=== PATIENT | female | born 1960 | race Caucasian/White ===

== ENCOUNTER 2016-10-27 10:42 | Emergency (ER) | payer OTHER | END 2016-10-27 12:43 | disposition left against medical advice (07) | LOC: UCEAST 10:42 | DX: L98.9 Disorder of the skin and subcutaneous tissue, unspecified (principal); Z53.21 Procedure and treatment not carried out due to patient leaving prior to being seen by health care provider ==

== ENCOUNTER 2016-10-27 13:00 | Emergency (ER) | payer OTHER ==
[2016-10-27 13:21] VITALS: BP 119/75
--- NOTE | 2016-10-27 14:43 | UC ---
Epistaxis Nasal HPI - HPI Summary HPI Summary: FOUR TO FIVE DAYS OF RIGHT NOSTRIL, TENDERNESS, REDNESS, SWELLING. NO FEVER. NO DRAINAGE, NO TRAUMA. - History of Current Complaint Chief Complaint: KALEYkin Stated Complaint: NOSE COMPLAINT Time Seen by Provider: 10/27/16 13:24 Hx Obtained From: Patient Hx Last Menstrual Period: 03/2016 Onset/Duration: Gradual Onset, Lasting Days, Still Present Timing: Days Severity Initially: Mild Severity Currently: Moderate Pain Intensity: 0 Pain Scale Used: Adult Non Verbal Aggravating Factor(s): Nothing - TOUCH Alleviating Factor(s): Nothing Associated Signs And Symptoms: Negative: Sinus Pain, Nasal Discharge - Allergies/Home Medications Allergies/Adverse Reactions: Allergies Allergy/AdvReac Type Severity Reaction Status Date / Time Penicillin G Allergy Itching Verified 09/17/16 13:34 Sulfamethoxazole Allergy Hives Verified 10/27/16 13:22 w/Trimethoprim [From Bactrim] HAYFEVER Allergy SNEEZING, Uncoded 09/17/16 13:34 CONGESTION, ITCHY WATERY EYES PMH/Surg Hx/FS Hx/Imm Hx Previously Healthy: Yes - Surgical History Surgical History: Yes Surgery Procedure, Year, and Place: 2010 LEFT INGUINAL HERNIA REPAIR, [facility]IL[facility]OM[facility] AGE 6WISDOM TEETH [id number] VARICOSE VEIN SURGERY LEFT LEG , [facility] - Family History Known Family History: Negative: Respiratory Disease - Social History Occupation: Employed Full-time Lives: With Family Alcohol Use: None Substance Use Type: None Smoking Status (MU): Never Smoked Tobacco Review of Systems Constitutional: Negative Skin: Other Eyes: Negative ENT: Other - RIGHT NOSTRIL REDNESS, SWELLING, AND PAIN Respiratory: Negative Cardiovascular: Negative Gastrointestinal: Negative Genitourinary: Negative Motor: Negative Neurovascular: Negative Musculoskeletal: Negative Neurological: Negative Psychological: Negative All Other Systems Reviewed And Are Negative: Yes Physical Exam Triage Information Reviewed: Yes Appearance: Well-Appearing, No Pain Distress, Well-Nourished Vital Signs: Initial Vital Signs Temp 98.6 F 10/27/16 13:18 Pulse 75 10/27/16 13:18 Resp 16 10/27/16 13:18 BP 119/75 10/27/16 13:18 Pulse Ox 99 10/27/16 13:18 Vital Signs Reviewed: Yes Eye Exam: Normal ENT: Positive: Hearing grossly normal, Pharynx normal, TMs normal, Other: - RIGHT NOSTRIL ERRYTHEMA, EDEMA Dental Exam: Normal Neck exam: Normal Neck: Positive: Supple, Nontender, No Lymphadenopathy Respiratory Exam: Normal Respiratory: Positive: Chest non-tender, Lungs clear, Normal breath sounds, No respiratory distress, No accessory muscle use Cardiovascular Exam: Normal Cardiovascular: Positive: RRR, No Murmur, Pulses Normal Abdominal Exam: Normal Musculoskeletal Exam: Normal Musculoskeletal: Positive: Strength Intact, ROM Intact, No Edema Neurological Exam: Normal Psychological Exam: Normal Skin Exam: Normal Epistaxis Nasal Course/Dx - Differential Dx/Diagnosis Differential Diagnosis/HQI/PQRI: Sinusitis, Trauma, Other Provider Diagnoses: RIGHT NARES CELLULITIS Discharge - Discharge Plan Condition: Stable Disposition: HOME Prescriptions: Clindamycin Cap(NF) [Cleocin 300 mg Cap(NF)] 300 mg PO TID #30 cap Patient Education Materials: Cellulitis (ED) Referrals: Oswaldo Morrell MD [Medical Doctor] - Leila Coyle NP [Primary Care Provider] -
== END 2016-10-27 13:45 | disposition home or self-care (01) ==
LOC: UCEAST 13:00
DX: J34.89 Other specified disorders of nose and nasal sinuses (principal)
CPT/HCPCS: 99212; G0463

== ENCOUNTER 2017-12-13 09:21 | Day surgery (SDC) | payer OTHER ==
--- NOTE | 2017-12-10 11:33 | HP ---
PREOPERATIVE HISTORY AND PHYSICAL: DATE OF SURGERY/ADMISSION: 12/13/17 DATE OF OFFICE VISIT/ENCOUNTER: 11/27/17 ATTENDING SURGEON: Jazmín Ridley MD* (dictated by RENA Bernard). PROCEDURE: Excision mass, right index finger. CHIEF COMPLAINT: Mass, right index finger. HISTORY OF PRESENT ILLNESS: This is a 57-year-old female who complains of a bump on the dorsal aspect of her right index finger that has been present for a few years. She does not recall any injury. She denies any associated pain, numbness, or tingling. It is gradually getting larger over time and she would like to have it removed. She has consented to proceed with surgical intervention. PAST MEDICAL HISTORY: 1. Hypertension. 2. Existing heart murmur. PAST SURGICAL HISTORY: 1. Tonsillectomy. 2. Vein stripping. 3. Hernia repair. CURRENT MEDICATIONS: 1. Calcium daily. 2. Glycine 500 mg 2 tabs 3 times a day. 3. Ibuprofen 400 mg 1 tab twice a day p.r.n. 4. Losartan potassium 100 mg daily. 5. Lysine acetate 500 mg twice a day. 6. Pioche-3 1000 mg 2 tabs daily. 7. Turmeric 1 capsule daily. 8. Vagifem 10 mcg twice a week. 9. Vitamin B12 500 mcg daily. 10. Vitamin D High Potency 2000 units 1 daily. ALLERGIES: PENICILLIN causes hives and itchiness. BACTRIM causes hives. FAMILY MEDICAL HISTORY: Arthritis and thyroid problem. 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 She denies tobacco use, recreational drug use. She does not drink alcohol. REVIEW OF SYSTEMS: General: Negative for fevers, chills, night sweats, unexplained weight loss/gain. No known anesthesia problems. HEENT: Negative for headache, lightheadedness, syncopal episodes, visual changes. Integumentary : Negative for abrasions, lesions, open wounds. Cardiothoracic: Negative for hypertension, chest pain, palpitations, edema. Respiratory: Negative for shortness of breath with exertion, chronic cough, wheezing. GI: Negative for nausea, vomiting, diarrhea, constipation, GERD. : Negative for nocturia, urinary frequency, urgency, history of UTIs, kidney problems. Musculoskeletal: Positive for current complaint. Negative for chronic or intermittent back pain or history of fractures. Neurological: Negative for paresthesias, numbness, history of seizure, stroke, poor balance. Endocrine: Negative for diabetes and thyroid issues. Hematologic: Negative for easy bruising, anemia, bleeding disorders, history of DVT. Infectious Disease: Negative for history of MRSA, hepatitis C, HIV. PHYSICAL EXAMINATION GENERAL: Well-developed, well-nourished 57-year-old female in no acute distress. VITAL SIGNS: Height 5 feet 8 inches, weight 158 pounds. Pulse rate 68, blood pressure is 98/58. HEENT: Normocephalic, atraumatic. Pupils are equal, round, and reactive to light and accommodation. NECK: Supple. No palpable lymph nodes. Throat is clear. PULMONARY: Lungs are clear to auscultation bilaterally. No wheezes, rales, or rhonchi. CARDIOVASCULAR: Regular rate and rhythm. S1, S2. Mild heart murmur detected on auscultation. No rubs or gallops. No edema. ABDOMEN: Positive bowel sounds, soft, nontender. MUSCULOSKELETAL: On exam of the right index finger, there is a small cystic mass just distal to the dorsal aspect of the DIP joint, it is mildly tender to palpation. It has not caused any deformity in her fingernail. She has full extension of the joint, but lacks a little bit of flexion. She has obvious osteophytes at the DIP joint. NEUROLOGIC: Alert and oriented x3. Cranial nerves II through XII are intact. Sensation is intact to light touch. 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 IMPRESSION: Right index finger mucous cyst. PLAN: The patient is scheduled to undergo an excision mass of index finger with Dr. Ridley on 12/13/17. She will return to the office 10 days postop for followup and suture removal. A prescription for Ultracet was e-scribed to the patient's pharmacy for postoperative pain management. RENA BERNARD [id number]/[facility] #: [id number] ERROL
[~2017-12-13 09:21] MED LIST: Buffered Lidocaine 0.9% SYRIN* 5 ML/SYR SYRINGE INTRADERM ONE; Dexamethasone TAB* 4 MG ONE; Dexamethasone TAB* 4 MG PO ONE; DiMENhydriNATE IV* 50 MG/ML VIAL IV PUSH PRN; Famotidine IV* 10 MG/ML 2 ML (20 mg) IV ONE; Famotidine IV* 10 MG/ML 2 ML (20 mg) ONE; Lidocaine 1% INJ* 10 MG/ML 30 ML SDV ONE; Naloxone* 0.4 MG/ML 1 ML VIAL IV PRN; Ondansetron ODT TAB* 4 MG ONE; Ondansetron TAB* 4 MG PO ONE; PROCHLORPERAZINE INJ 5 MG/ML 2 ML VIAL IV PRN; oxyCODONE/Acetamin 5/325 MG* TAB PO PRN
[2017-12-13] MEDS ORDERED: Midazolam* 1 MG/ML 5 ML VIAL (5 MG) ONE (10:00)
[2017-12-13] MEDS ORDERED: fentaNYL* 50 MCG/ML 2 ML VIAL (100 MCG VIAL) ONE (10:00)
[2017-12-13] MEDS ORDERED: Propofol* 10 MG/ML 20 ML BTL IV PUSH ONE (10:51)
[2017-12-13] MEDS ORDERED: Ketorolac INJ* 30 MG/ML 1 ML VIAL ONE (10:51)
[2017-12-13 11:59] VITALS: BP 111/66
--- NOTE | 2017-12-13 21:22 | OP ---
DATE OF OPERATION: 12/13/17 [facility] DATE OF : 62 SURGEON: Jazmín Ridley MD CONTRACTS ATTORNEY: RENA Bernard ANESTHESIA: Local MAC. PRE-OP DIAGNOSIS: Right index finger mass. POST-OP DIAGNOSIS: Right index finger mass. OPERATIVE PROCEDURE: Right index finger mass removal. ESTIMATED BLOOD LOSS: Zero. TOURNIQUET TIME: About 15 minutes. INDICATIONS: Radha is a 57-year-old with a painful mass on the dorsal aspect of her right index finger DIP joint. She presents for removal. DESCRIPTION OF PROCEDURE: The patient was brought to the operating room, was given a sedation anesthetic and a digital block with 10 cc of 1% plain lidocaine. The skin of her right hand and forearm was prepped and draped in the usual sterile fashion. The finger was exsanguinated with a Tourni-Cot. An H shaped incision was made centered over the DIP joint dorsal aspect of the right index finger. It was dissected sharply through the subcutaneous tissue down to the extensor tendon. The distal skin flap was carefully dissected over the ganglion cyst. The cyst was removed in its entirety with a small portion of the joint capsule. Both sides of the extensor tendon were incised longitudinally exposing the joint capsule and the underlying osteophytes. The osteophytes were removed with a rongeur. The wound was irrigated and the skin were reapproximated with 4-0 nylon suture. The wound was dressed with Xeroform , 4x4, Webril and Coban. The patient tolerated the procedure well, was brought to the recovery room in good condition. [id number]/[facility] #: [id number] [facility]ITALSea
== END 2017-12-13 11:53 | disposition home or self-care (01) ==
LOC: OREAST 09:21
PROVIDERS: ATTEND Orthopaedic Surgery
DX: M67.441 Ganglion, right hand (principal); I10 Essential (primary) hypertension; R01.1 Cardiac murmur, unspecified
CPT/HCPCS: 88304; A9270-GY; J1885; J2250; J2704; J3010; J8540

== ENCOUNTER 2018-03-16 10:49 | Emergency (ER) | payer OTHER ==
[2018-03-16 11:53] VITALS: BP 138/83
--- NOTE | 2018-03-16 12:20 | UC ---
Skin Complaint HPI - HPI Summary HPI Summary: soreness R nostril for several days after traveling to [place]. has had same in past that was treated with clindamycin and it resolved - History of Current Complaint Chief Complaint: UCSkin Time Seen by Provider: 03/16/18 11:51 Stated Complaint: SKIN IN NOSE COMPLAINT Hx Obtained From: Patient Hx Last Menstrual Period: 03/2016 ?: No Onset/Duration: Gradual Onset Onset Severity: Mild Current Severity: Mild Pain Intensity: 0 Aggravating Factor(s): Nothing Alleviating Factor(s): Nothing Associated Signs & Symptoms: Positive: Negative. Negative: Fever, Chills Similar Episode/Dx as: cellulitis - Allergy/Home Medications Allergies/Adverse Reactions: Allergies Allergy/AdvReac Type Severity Reaction Status Date / Time Penicillins Allergy Itching Verified 03/16/18 11:53 sulfamethoxazole Allergy Hives Verified 03/16/18 11:53 [From Bactrim] trimethoprim [From Bactrim] Allergy Hives Verified 03/16/18 11:53 HAYFEVER Allergy SNEEZING, Uncoded 03/16/18 11:53 CONGESTION, ITCHY WATERY EYES Home Medications: Home Medications Calcium Carbonate [Calcium] 500 mg PO 03/16/18 [History] Review of Systems All Other Systems Reviewed And Are Negative: Yes Constitutional: Positive: Negative Skin: Negative: Rash Respiratory: Positive: Negative Cardiovascular: Positive: Negative Musculoskeletal: Positive: Negative Neurological: Positive: Negative Psychological: Positive: Negative Is Patient Immunocompromised?: No PMH/Surg Hx/FS Hx/Imm Hx Previously Healthy: Yes - Surgical History Surgical History: Yes Surgery Procedure, Year, and Place: 2010 LEFT INGUINAL HERNIA REPAIR, [facility] – [place]. TONSILLECTOMY AGE 6. WISDOM TEETH [id number]. VARICOSE VEIN SURGERY LEFT LEG, [facility] – [place] - Family History Known Family History: Positive: None Negative: Respiratory Disease - Social History Occupation: Employed Full-time Lives: With Family Alcohol Use: None Substance Use Type: None Smoking Status (MU): Never Smoked Tobacco Physical Exam Triage Information Reviewed: Yes Appearance: Well-Appearing, No Pain Distress, Well-Nourished Vital Signs: Initial Vital Signs Temp 97.6 F 03/16/18 11:50 Pulse 72 03/16/18 11:50 Resp 18 03/16/18 11:50 BP 138/83 03/16/18 11:50 Pulse Ox 98 03/16/18 11:50 Vital Signs Reviewed: Yes Eye Exam: Normal ENT: Positive: Other - small raised, erythemic tender area R lateral nostril, no pustule or drainage detected Neck exam: Normal Neck: Positive: No Lymphadenopathy Respiratory Exam: Normal Cardiovascular Exam: Normal Neurological Exam: Normal Psychological Exam: Normal Course/Dx - Differential Diagnoses - Skin Complaint Differential Diagnoses: Abscess, Cellulitis, Impetigo - Diagnoses Provider Diagnoses: cellulitis Discharge - Sign-Out/Discharge Documenting (check all that apply): Patient Departure All imaging exams completed and their final reports reviewed: No Studies - Discharge Plan Condition: Good Disposition: HOME Prescriptions: Clindamycin HCl 150 mg PO TID #30 capsule Mupirocin 2% OINT* [Bactroban 2 % Oint*] 1 applic TOPICAL BID #1 tube Patient Education Materials: Cellulitis (ED) Referrals: Leila Coyle NP [Primary Care Provider] - 3 Days (if no better) Additional Instructions: use ointment twice daily as directed if no better 3 days, start clindamycin pills - Billing Disposition and Condition Condition: GOOD Disposition: Home
== END 2018-03-16 12:55 | disposition home or self-care (01) ==
LOC: UCEAST 10:49
DX: J34.0 Abscess, furuncle and carbuncle of nose (principal); Z88.0 Allergy status to penicillin; Z88.2 Allergy status to sulfonamides
CPT/HCPCS: 99212; G0463

== ENCOUNTER 2018-09-08 07:22 | Day surgery (SDC) | payer OTHER ==
[~2018-09-08 07:22] MED LIST changes: -Buffered Lidocaine 0.9% SYRIN* 5 ML/SYR SYRINGE INTRADERM ONE; +Buffered Lidocaine 1% SYRIN* 1 ML/SYRINGE INTRADERM ONE; -Dexamethasone TAB* 4 MG ONE; -Dexamethasone TAB* 4 MG PO ONE; -DiMENhydriNATE IV* 50 MG/ML VIAL IV PUSH PRN; -Famotidine IV* 10 MG/ML 2 ML (20 mg) IV ONE; -Famotidine IV* 10 MG/ML 2 ML (20 mg) ONE; +Lactated Ringers 1000 ML Bag* 1,000 ML IV SCH; -Lidocaine 1% INJ* 10 MG/ML 30 ML SDV ONE; -Naloxone* 0.4 MG/ML 1 ML VIAL IV PRN; -Ondansetron ODT TAB* 4 MG ONE; -Ondansetron TAB* 4 MG PO ONE; -PROCHLORPERAZINE INJ 5 MG/ML 2 ML VIAL IV PRN; -oxyCODONE/Acetamin 5/325 MG* TAB PO PRN
[2018-09-08] MEDS ORDERED: Onabotulinimtoxina 100 UNITS* VIAL ONE (09:00)
[2018-09-08] MEDS ORDERED: Bupivacaine 0.5% W/EPI SDV* 30 ML VIAL ONE (09:17)
[2018-09-08] MEDS ORDERED: Lidocaine 1% INJ* 10 MG/ML 30 ML SDV ONE (09:17)
[2018-09-08] MEDS ORDERED: Lidocaine 2% JELLY* 6 ML JELLY TOPICAL ONE (09:18)
[2018-09-08] MEDS ORDERED: Midazolam* 1 MG/ML 5 ML VIAL (5 MG) ONE (09:44)
[2018-09-08] MEDS ORDERED: fentaNYL* 50 MCG/ML 2 ML VIAL (100 MCG VIAL) ONE (09:56)
[2018-09-08] MEDS ORDERED: Propofol* 10 MG/ML 20 ML BTL ONE (10:07)
--- NOTE | 2018-09-08 10:27 | BRIEFOPN ---
Brief Operative Note - Surgery Procedures: Procedures OPERATIVE REPORT Pre-op: Posterior anal fissure Post-Op: Same Procedure:Anorectal exam under anesthesia, injection of Botox A into internal anal sphincter Surgeon: MD Adan Asst: none Anes: MAC with local IVF:min EBL:min Specimen: none Drain: none Wound: N/A To PACU
[2018-09-08] MEDS ORDERED: fentaNYL* 50 MCG/ML 2 ML VIAL (100 MCG VIAL) IV PRN (10:28)
[2018-09-08] MEDS ORDERED: oxyCODONE/Acetamin 5/325 MG* TAB PO PRN (10:28)
[2018-09-08] MEDS ORDERED: Ondansetron INJ* 2 MG/ML VIAL IV PRN (10:28)
[2018-09-08] MEDS ORDERED: Naloxone* 0.4 MG/ML 1 ML VIAL IV PRN (10:28)
[2018-09-08 10:56] VITALS: BP 151/89
--- NOTE | 2018-09-08 23:09 | OP ---
DATE OF OPERATION: 09/08/18 [facility] DATE OF : 62 SURGEON: Enrique Arellano MD ANESTHESIOLOGIST: Dr. Guevara. ANESTHESIA: Local with monitored anesthesia care. PRE-OP DIAGNOSIS: Posterior midline anal fissure. POST-OP DIAGNOSES: 1. Posterior midline anal fissure. 2. Internal hemorrhoids. OPERATIVE PROCEDURE: Anorectal exam under anesthesia with injection of 100 units of Botox A into the internal anal sphincter. ESTIMATED BLOOD LOSS: Minimal. WOUND CLASSIFICATION: Nonapplicable. DRAINS: None. SPECIMENS: None. COMPLICATIONS: None. BRIEF HISTORY: Ms. Rachel is a 58-year-old woman who has had several years of intermittent severe appearing anal discomfort, especially with bowel movements and after. She has had minimal bleeding and had no prolapse. In the office, she had what appears to be a posterior midline fissure and due to the discomfort and difficulty performing an examination to make an adequate diagnosis, she has been taken to the operating room today for an anorectal exam under anesthesia with possible Botox injection. Please see the preoperatively dictated history and physical for more detail. 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 There was a sentinel pile at the 12 o'clock position as well. She had a small to moderate sized internal hemorrhoids. No other abnormalities were noted on exam. DESCRIPTION OF PROCEDURE: Written informed consent was obtained and the patient was taken to the endoscopy suite and placed in the prone jackknife position. Sequential compression devices and a warming blanket were applied. Sedation was administered. The perineum and buttocks were prepped and draped in the usual sterile fashion. Time-out verification was completed. Initially, 0.25% Marcaine mixed with 1% lidocaine with epinephrine was used to perform a standard perianal block mainly in the posterior half of the anal verge. Digital rectal exam revealed no evidence of mass or blood. Use of appropriate retractors showed internal hemorrhoids without an ulceration or bleeding. The distal rectal mucosa appeared to be unremarkable. I noted no fistulous openings, abscess, or perianal skin excoriation. There was a sentinel polyp at the 12 o'clock position and subsequently I noted a posterior midline 12 o'clock fissure with exposed sphincter muscle that was approximately a 1.5 cm in length. With this diagnosis in mind, 50 units of Botox A were injected into the internal anal sphincter on either side of the fissure. She tolerated this well. Hemostasis was assured. Dry sterile dressing was applied. The patient tolerated the procedure well, and was taken to the recovery room in stable condition. [id number]/[facility] #: [id number] MTDD
== END 2018-09-08 11:09 | disposition home or self-care (01) ==
LOC: OR 07:22
PROVIDERS: ATTEND Surgery
DX: K60.1 Chronic anal fissure (principal); K64.8 Other hemorrhoids; I10 Essential (primary) hypertension; E11.9 Type 2 diabetes mellitus without complications
CPT/HCPCS: J0585; J2250; J2704; J3010